=== PATIENT | male | born 1990 | race Hispanic/Latino ===

== ENCOUNTER 2023-07-13 03:10 | Emergency (ER) | payer BC, OTHER, SELFPAY ==
[2023-07-13] MEDS ORDERED: LEVETIRACETAM 500 MG/5 ML VIAL IV ONE (03:40)
[2023-07-13] MEDS ORDERED: THIAMINE 200 MG/2 ML INJ ONE (03:40)
[2023-07-13] MEDS ORDERED: NA CHLORIDE 0.9% 100 ML ONE ×2 (03:41→04:38)
[2023-07-13] MEDS ORDERED: LORazepam 2 MG/ML VIAL ONE ×3 (03:41→04:13)
[2023-07-13] MEDS ORDERED: FAMOTIDINE 20 MG/2 ML VIAL IV ONE (03:41)
[2023-07-13] MEDS ORDERED: NA CHLORIDE 0.9% 2,000 ML ONE (03:42)
[2023-07-13] MEDS ORDERED: MULTIVITAMINS 10 ML VIAL (INJ) IV ONE (03:42)
[2023-07-13] MEDS ORDERED: FOLIC ACID 5 MG/ML VIAL ONE (03:42)
[2023-07-13 03:56] LABS: Absolute Lymphocytes (CBC) 7.4 K/uL (0.7-4.9); Hematocrit 49.1 % (39.6-49.0); Lymphocytes % 42.4 % (15.3-44.8); MCV 86.6 fL (80-100); MPV 9.4 fL (7.6-11.3); Platelets 325 thou/uL (152-406); RBC Red Blood Cell Count 5.67 M/uL (4.33-5.43)
[2023-07-13 03:59] LABS: Protime INR 1.02
[2023-07-13 04:19] LABS: ALT/SGPT 67 U/L (16-61); AST/SGOT 37 U/L (15-37); Albumin 3.5 g/dL (3.4-5.0); Alkaline Phosphatase 71 U/L (45-117); BUN Blood Urea Nitrogen 14 mg/dL (7-18); Bicarbonate 15 mEq/L (21-32); Bilirubin Direct 0.1 mg/dL (0-0.2); Bilirubin Indirect, Calculated 0.3 mg/dL (0.2-0.8); Bilirubin Total 0.4 mg/dL (0.2-1.0); Glomerular Filtration Rate 68 ml/min (=/>90); Glucose Level 396 mg/dL (74-106); Magnesium 2.5 mg/dL (1.6-2.4); NT PRO-BNP 18 pg/mL (<125); Potassium 3.8 mEq/L (3.5-5.1); Protein, Total 9.3 g/dL (6.4-8.2); Sodium Level 141 mEq/L (136-145); Troponin High Sensitivity 5.2 pg/mL (<58.9)
[2023-07-13] MEDS ORDERED: FOSPHENYTOIN PE 500 MG/10 ML VIAL ONE (04:38)
--- NOTE | 2023-07-13 05:20 | EDPHYS ---
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 The patient presents with a history of multiple seizures, that km last 2 minute(s), the episode(s) was witnessed, by family. Character of seizure(s): Loss of consciousness: the patient experienced loss of consciousness, Motor activity: generalized, shaking all over, Incontinence: incontinent of bladder, incontinent of bowel, Apnea: the patient did not experience apnea, Circulation: the patient did not experience evidence of pulse disturbance, Eye movements: are unknown. Seizure onset: just prior to arrival. Context: the seizure(s) was witnessed, by family. Seizure Hx: the patient has no previous seizure history. Associated injury: The patient did not suffer any apparent associated injury. EMS care: none. Current symptoms: confusion. Onset: The symptoms/episode began/occurred just prior to arrival. Historical: - Allergies: 03:15 Aspirin; bp - Home Meds: 03:15 Unable to obtain [Active]; bp - PMHx: 03:15 Unable to Obtain; bp - Immunization history:: Adult Immunizations up to date. - Social history:: Smoking status: Patient denies any tobacco usage or history of. ROS: 03:37 Neck: Negative for injury, pain, and swelling, Respiratory: Negative for shortness of km breath, cough, wheezing, and pleuritic chest pain, Back: Negative for injury and pain, MS/Extremity: Negative for injury and deformity, 03:37 Allergy/Immunology: Negative for hives, rash, and allergies, Endocrine: Negative for neck swelling, polydipsia, polyuria, polyphagia, and marked weight changes, 03:37 Constitutional: 03:37 Eyes: 03:37 Neuro: Positive for seizure activity, Exam: 03:37 Constitutional: The patient appears alert, km 03:37 Eyes: Exam is negative for acute changes, injury or deformity, erythema, icterus, abnormalities of symmetry, size, shape and reaction of the pupils, Periorbital structures: appear normal, no acute changes, Pupils: no acute changes, equal, round, and reactive to light and accomodation, Extraocular movements: intact throughout, Conjunctiva: normal, no acute changes, 03:37 Cardiovascular: Rate: tachycardic, actual rate is 128 bpm, Rhythm: regular, Heart sounds: normal, normal S1and S2, no S3 or S4, no murmur, no rub, no gallop, Edema: is not appreciated, JVD: is not appreciated, 05:19 ECG was reviewed by the Attending Physician. [facility] Vital Signs: 03:15 BP 138 / 68; Pulse 128; Resp 22 S; Temp 98.1(TE); Pulse Ox 95% on R/A; Weight 142 kg; as6 04:41 BP 114 / 65; Pulse 112; Resp 24; Pulse Ox 97% on 2 lpm NC; bp 05:45 BP 129 / 79; Pulse 98; Resp 28; Pulse Ox 96% ; bp MDM: 03:18 Patient medically screened. km 03:43 Differential Diagnosis altered mental status, sepsis, flu. Differential diagnosis: km cerebral vascular accident, drug overdose, cardiac arrhythmia, seizure, TIA. Data reviewed: vital signs, nurses notes, lab test result(s), EKG, radiologic studies, CT scan, plain films. Consideration of Admission/Observation Escalation of care including admission/observation considered. I considered the following discharge prescriptions or medication management in the emergency department Medications were administered in the Emergency Department. See MAR. Independent interpretation of the following test(s) in the Emergency Department EKG: See my EKG interpretation above. Test considered but Not performed: MRI: no mri brain. Historians other than the Patient: Spouse/Significant Other: . Care significantly affected by the following chronic conditions: Obesity, Cancer. Counseling: I had a detailed discussion with the patient and/or guardian regarding the historical points, exam findings, and any diagnostic results supporting the discharge/admit diagnosis, lab results, radiology results, the need to transfer to another facility, for higher level of care, [facility] does not immediately have the required specialist. 07/13 03:18 Order name: Acetaminophen; Complete Time: 05:00 bp 07/13 03:18 Order name: Basic Metabolic Panel; Complete Time: 05:00 bp 07/13 03:18 Order name: CBC with Diff; Complete Time: 05:00 bp 07/13 03:18 Order name: ETOH Level; Complete Time: 05:00 bp 07/13 03:18 Order name: Hepatic Function; Complete Time: 05:00 bp 07/13 03:18 Order name: PT-INR; Complete Time: 05:00 bp 07/13 03:18 Order name: Ptt, Activated; Complete Time: 05:00 bp 07/13 03:18 Order name: Salicylate; Complete Time: 05:00 bp 07/13 03:19 Order name: Magnesium; Complete Time: 05:00 [facility] 07/13 03:19 Order name: NT PRO-BNP; Complete Time: 05:00 [facility] 07/13 03:19 Order name: Troponin HS; Complete Time: 05:00 [facility] 07/13 03:19 Order name: Flu [facility] 07/13 03:19 Order name: COVID-19 SARS RT PCR [facility] 07/13 03:47 Order name: Glucose, Ancillary Testing; Complete Time: 05:00 EDMS 07/13 03:19 Order name: XRAY Chest (1 view) [facility] 07/13 03:24 Order name: CT Stroke Brain w/o Contrast [facility] 07/13 03:18 Order name: EKG; Complete Time: 03:18 07/13 03:18 Order name: IV Saline Lock; Complete Time: 03:38 07/13 03:18 Order name: Labs collected and sent; Complete Time: 04:01 07/13 03:18 Order name: Suicide Screening (Kenefic); Complete Time: 03:18 07/13 03:19 Order name: Cardiac monitoring; Complete Time: 03:19 [facility] 07/13 03:19 Order name: O2 Per Protocol; Complete Time: 03:19 [facility] 07/13 03:19 Order name: O2 Sat Monitoring; Complete Time: 03:19 [facility] 07/13 03:20 Order name: Seizure Precautions; Complete Time: 03:23 [facility] EC:19 Rate is 102 beats/min. Rhythm is regular. QRS [place] is Normal. OR interval is normal. km QRS interval is normal. QT interval is normal. No Q waves. T waves are Normal. No ST changes noted. Clinical impression: NSR w/ Non-specific ST/T Changes and No evidence of ischemia. Interpreted by me. Reviewed by me. Administered Medications: 03:33 Drug: Ativan IVP 1 mg IVP once Route: IVP; Site: left forearm; as6 05:46 Follow up: Response: No adverse reaction bp 03:33 Drug: Ativan IVP 1 mg IVP once Route: IVP; Site: left forearm; as6 05:46 Follow up: Response: No adverse reaction bp 03:35 Drug: Keppra IV 2000 mg IV at per protocol once Route: IV; Rate: per protocol; Site: as6 left forearm; 05:48 Follow up: IV Status: Completed infusion; IV Intake: 100ml bp 03:58 Drug: Ativan IVP 2 mg IVP once Route: IVP; Site: right antecubital; bp 05:46 Follow up: Response: No adverse reaction bp 04:01 Drug: NS 0.9% IV 1000 ml IV at 1 bolus Per protocol; 1000 mL bolus Route: IV; Rate: 1 bp bolus; Site: right antecubital; 05:47 Follow up: IV Status: Completed infusion; IV Intake: 1000ml bp 04:01 Drug: Famotidine IVP 20 mg IVP once; dilute with 10 mL 0.9% NaCl; give over 2 minutes bp Route: IVP; Site: right antecubital; 05:47 Follow up: Response: No adverse reaction bp 04:01 Drug: foLIC Acid IVPB 1 mg IVPB once Route: IVPB; Site: right antecubital; bp 05:46 Follow up: IV Status: Completed infusion; IV Intake: 100ml bp 04:01 Drug: Banana Bag - (Multivitamin IV 1 amp, NS 0.9% IV 1000 ml, Thiamine IV 100 mg, bp foLIC Acid IVPB 1 mg) IV at 125 ml/hr once Route: IV; Rate: 125 ml/hr; Site: right antecubital; 05:46 Follow up: IV Status: Infusion continued upon transfer bp 04:30 Drug: Fosphenytoin IVPB 1.5 grams IVPB once; (mix in 50 to 100mL NS) Route: IVPB; Site: bp right antecubital; 05:47 Follow up: IV Status: Completed infusion; IV Intake: 100ml bp 05:47 Not Given (PT TRANSFERREDd): rocephin2 grams IV at per protocol once; Given slow IV bp push per pharmarcy instructions Point of Care Testing: Blood Glucose: 03:37 Blood Glucose: 370 mg/dL; km 03:41 Blood Glucose: 370 mg/dL; as6 Ranges: Critical Glucose Levels:Adult <50 mg/dl or >400 mg/dl <40 mg/dl or >180 mg/dl Disposition Summary: 07/13/23 05:19 Transfer Ordered Notes: Transfer Location: [facility] km Reason: Higher level of care km Condition: Fair km Problem: new km Symptoms: have improved km Accepting Physician: to neuro icu(07/13/23 05:48) bp Diagnosis - Abnormal findings on diagnostic imaging of other specified body structures - ct km brain , 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 EDMS EDMS 05:48 05:19 to neuro icu km bp
--- NOTE | 2023-07-13 05:20 | ER ---
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 Coronavirus bp screen: At this time, the client does not indicate any symptoms associated with coronavirus-19. Ebola Screen: No symptoms or risks identified at this time. Initial Sepsis Screen: Does the patient meet any 2 criteria? No. Patient's initial sepsis screen is negative. Does the patient have a suspected source of infection? No. Patient's initial sepsis screen is negative. Risk Assessment: Do you want to hurt yourself or someone else? Patient reports no desire to harm self or others. Onset of symptoms was July 13, 2023. 03:13 Method Of Arrival: EMS: [facility] 03:13 Acuity: MELLY 2 as6 Triage Assessment: 03:13 General: Appears distressed, unkempt, INCONTINENT. Behavior is CONFUSED, NON-VERBAL. bp Pain: Unable to use pain scale. Does not appear to understand pain scale. Historical: - Allergies: 03:15 Aspirin; bp - Home Meds: 03:15 Unable to obtain [Active]; bp - PMHx: 03:15 Unable to Obtain; bp - Immunization history:: Adult Immunizations up to date. - Social history:: Smoking status: Patient denies any tobacco usage or history of. Screenin:39 [facility] ED Fall Risk Assessment (Adult) Score/Fall Risk Level 3 or more points = High as6 Risk. Abuse screen: Denies threats or abuse. Denies injuries from another. Nutritional screening: No deficits noted. Tuberculosis screening: No symptoms or risk factors identified. Assessment: 03:30 Neuro: Seizure activity noted at this time. as6 03:58 Reassessment: PT REMAINS COMBATIVE, NONVERBAL AND DISORIENTED. UNABLE TO TRANSPORT TO CT 2/2 PT AGITATION. 04:41 Reassessment: PT UNCOOPERATIVE IN CT AND ON RETURN TO ROOM, REMAINS NONVERBAL AND bp DISORIENTED. TRANSFER INITIATED 2/[address] Vital Signs: 03:15 BP 138 / 68; Pulse 128; Resp 22 S; Temp 98.1(TE); Pulse Ox 95% on R/A; Weight 142 kg; as6 04:41 BP 114 / 65; Pulse 112; Resp 24; Pulse Ox 97% on 2 lpm NC; bp 05:45 BP 129 / 79; Pulse 98; Resp 28; Pulse Ox 96% ; bp ED Course: 03:12 Patient arrived in ED. rv1 03:13 Eddie Torres, RN is Primary Nurse. bp 03:14 Triage completed. bp 03:15 Arm band placed on. as6 03:15 Bed in low position. Call light in reach. Side rails up X2. Client placed on continuous as6 cardiac and pulse oximetry monitoring. NIBP monitoring applied. 03:18 Jaime Whiting MD is Attending Physician. km 03:39 Inserted saline lock: 18 gauge 20 gauge in right in left antecubital area, using as6 aseptic technique. forearm, using aseptic technique. 03:53 XRAY Chest (1 view) In Process Unspecified. EDMS 04:24 CT Stroke Brain w/o Contrast In Process Unspecified. EDMS 04:42 Initiated transfer with Jaja at [facility]. rv1 05:01 Inserted saline lock: 22 gauge in right hand, using aseptic technique. bp 05:[address] Worrell to [facility] 8A Rm 813. rv1 05:45 No provider procedures requiring assistance completed. Patient transferred, IV remains bp in place. 05:46 Provided Education on: N/A. bp Administered Medications: 03:33 Drug: Ativan IVP 1 mg IVP once Route: IVP; Site: left forearm; as6 05:46 Follow up: Response: No adverse reaction bp 03:33 Drug: Ativan IVP 1 mg IVP once Route: IVP; Site: left forearm; as6 05:46 Follow up: Response: No adverse reaction bp 03:35 Drug: Keppra IV 2000 mg IV at per protocol once Route: IV; Rate: per protocol; Site: as6 left forearm; 05:48 Follow up: IV Status: Completed infusion; IV Intake: 100ml bp 03:58 Drug: Ativan IVP 2 mg IVP once Route: IVP; Site: right antecubital; bp 05:46 Follow up: Response: No adverse reaction bp 04:01 Drug: NS 0.9% IV 1000 ml IV at 1 bolus Per protocol; 1000 mL bolus Route: IV; Rate: 1 bp bolus; Site: right antecubital; 05:47 Follow up: IV Status: Completed infusion; IV Intake: 1000ml bp 04:01 Drug: Famotidine IVP 20 mg IVP once; dilute with 10 mL 0.9% NaCl; give over 2 minutes bp Route: IVP; Site: right antecubital; 05:47 Follow up: Response: No adverse reaction bp 04:01 Drug: foLIC Acid IVPB 1 mg IVPB once Route: IVPB; Site: right antecubital; bp 05:46 Follow up: IV Status: Completed infusion; IV Intake: 100ml bp 04:01 Drug: Banana Bag - (Multivitamin IV 1 amp, NS 0.9% IV 1000 ml, Thiamine IV 100 mg, bp foLIC Acid IVPB 1 mg) IV at 125 ml/hr once Route: IV; Rate: 125 ml/hr; Site: right antecubital; 05:46 Follow up: IV Status: Infusion continued upon transfer bp 04:30 Drug: Fosphenytoin IVPB 1.5 grams IVPB once; (mix in 50 to 100mL NS) Route: IVPB; Site: bp right antecubital; 05:47 Follow up: IV Status: Completed infusion; IV Intake: 100ml bp 05:47 Not Given (PT TRANSFERREDd): rocephin2 grams IV at per protocol once; Given slow IV bp push per pharmarcy instructions Medication: 03:39 VIS not applicable for this client. as6 Point of Care Testing: Blood Glucose: 03:37 Blood Glucose: 370 mg/dL; km 03:41 Blood Glucose: 370 mg/dL; as6 Ranges: Intake: 05:46 IV: 100ml; Total: 100ml. bp 05:47 IV: 100ml; Total: 200ml. bp 05:47 IV: 1000ml; Total: 1200ml. bp 05:48 IV: 100ml; Total: 1300ml. bp Outcome: 05:19 ER care complete, transfer ordered by MD. barbour 05:45 Transferred by helicopter to [facility], bp 05:45 Condition: stable 05:45 Instructed on the need for transfer, 05:48 Patient left the ED. bp Signatures: Dispatcher [employer] Jaime Degroot MD MD cha Peltier, Brian, RN RN bp García Land RN RN as6 Radha Booker rv1 Corrections: (The following items were deleted from the chart) 03:39 03:13 Acuity: MELLY 3 bp as6
[2023-07-13 06:09] VITALS: TEMP 98.1
[2023-07-13 06:16] VITALS: BP 129/79; O2SAT 96
--- NOTE | 2023-07-13 11:18 | EKG ---
Test Date: 2023-07-13 Test Time: 05:14:14 Chief Scientific Officer: BP MEASUREMENT RESULTS: Intervals: Rate: 102 AL: 150 QRSD: 102 QT: 358 QTc: 466 Talent: P: 66 AL: 150 QRS: -9 T: 36 INTERPRETIVE STATEMENTS: Sinus tachycardia Otherwise normal ECG No previous ECG available for comparison Electronically Signed On 07-13-23 11:17:19 CDT by Denys Blanton
--- NOTE | 2023-07-13 13:25 | RAD REPORT ---
EXAM DESCRIPTION: ADDENDUM #1 THIS REPORT CONTAINS FINDINGS THAT MAY BE CRITICAL TO PATIENT CARE: The findings were verbally discus sed via telephone conference with Dr. Whiting at 4:41 AM central time on July 13, 2023. The res ults were acknowledged and understood. Patient presents with seizures. 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 Sagitt al and coronal reformatted images were created and reviewed. This CT exam was performed using one o r more of the following dose reduction techniques: automated exposure control, adjustment of the mA and/or kV according to patient size, and/or use of iterative reconstruction technique. COMPARISON: No relevant prior studies available. FINDINGS: Brain: No intracranial hemorrhage. 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 No significant white matter disease. Ventricles: Unremarkable. No ventriculomegaly. Bones/joints: Unremarkable. No acute skull fracture. Soft tissues: Unremarkable. Sinuses: Mucosal thickening in the bilateral maxillary sinuses. Mastoid air cells: No significant mastoid fluid. Dental: Mandibular and maxillary dental disease. IMPRESSION: 1. No intracranial hemorrhage. 2. 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 Electronically signed by: Shania Santoyo MD 07/13/2023 4:40 AM CDT Due to temporary technical issues with the PACS/Fluency reporting system, reports are being signed by the in house radiologists without review as a courtesy to insure prompt reporting. The interpreting radiologist is fully responsible for the content of the report.
--- NOTE | 2023-07-13 13:29 | RAD REPORT ---
EXAM DESCRIPTION: XR Chest, 1 View CLINICAL HISTORY: The patient is 33 years old and is Male; COUGH TECHNIQUE: Single view of the chest. COMPARISON: No relevant prior studies available. FINDINGS: Lungs: Expiratory film versus low lung volumes. Clear lungs. Pleural space: Unremarkable. No pneumothorax. Heart: The cardiac silhouette is enlarged versus artifact of AP technique. Mediastinum: Unremarkable. Bones/joints: No acute fracture visualized. Upper abdomen: No free air in the visualized upper abdomen. IMPRESSION: Expiratory film versus low lung volumes. Clear lungs. Electronically signed by: Shania Santoyo MD 07/13/2023 4:56 AM CDT Due to temporary technical issues with the PACS/Fluency reporting system, reports are being signed by the in house radiologists without review as a courtesy to insure prompt reporting. The interpreting radiologist is fully responsible for the content of the report.
== END 2023-07-13 05:48 | disposition short-term general hospital (02) ==
LOC: ER 03:10
DX: G40.901 Epilepsy, unspecified, not intractable, with status epilepticus (principal); R93.89 Abnormal findings on diagnostic imaging of other specified body structures; R73.9 Hyperglycemia, unspecified; D72.829 Elevated white blood cell count, unspecified; E66.09 Other obesity due to excess calories; Z20.822 Contact with and (suspected) exposure to COVID-19; Z88.6 Allergy status to analgesic agent
CPT/HCPCS: 93005; 85025; 80048; 36415; 83735; 85610; 82947; 80076; 85730; 84484; 83880; 87635; 87804 ×2; 70450; 71045; 99285; 80143; 80179; 82077; J3411; Q2009; J1953; J7030